=== PATIENT | male | born 1990 | race Caucasian/White ===

== ENCOUNTER → 2018-07-04 | Outpatient (CLI) | payer BC | LOC: FLAB 11:26 → FIMAGING 11:26 → EDSTATUS 11:26 | PROVIDERS: ATTEND Family Medicine | DX: M41.86 Other forms of scoliosis, lumbar region (principal); K59.00 Constipation, unspecified; R35.0 Frequency of micturition; R35.1 Nocturia ==

== ENCOUNTER 2018-07-19 10:56 | Emergency (ER) | payer BC ==
[2018-07-19] MEDS ORDERED: RANITIDINE 50 MG/2 ML VIAL IVP ONE (11:17)
[2018-07-19] MEDS ORDERED: predniSONE 20 MG TAB PO ONE (11:17)
[2018-07-19] MEDS ORDERED: NS 1,000 ML IV ONE (11:17)
[2018-07-19 12:03] LABS: PLATELET COUNT 231 10^3/uL (150-400)
[2018-07-19 12:16] LABS: CREATINE KINASE 85 IU/L (0-224)
[2018-07-19 12:22] VITALS: BP 112/76
--- NOTE | 2018-07-19 12:55 | EDPHY ---
H & P Stated Complaint: trouble breathing, STATES THROAT FEELS TIGHT" started simvistatian today - Personal History Current Tetanus Diphtheria and Acellular Pertussis (TDAP): Yes - Medical/Surgical History Hx Asthma: No Hx Chronic Respiratory Disease: No Hx Diabetes: No Hx Cardiac Disease: No Hx Renal Disease: No Hx Cirrhosis: No Hx Alcoholism: No Hx HIV/AIDS: No Hx Splenectomy or Spleen Trauma: No Other PMH: GERD, migraines, POTS - Social History Smoking Status: Current every day smoker Time Seen by Provider: 07/19/18 11:02 HPI/ROS: Chief complaint: Trouble breathing History of present illness: This is a 28-year-old male who presents to the emergency department for trouble breathing. Patient states this morning he took a dose of simvastatin. Shortly thereafter he started developed some discomfort in his throat, it felt like it was swelling. He felt like he could not breathe. He denies any actual swelling of the face, or mouth that he could see. No wheezing. No rash. He tried to take simvastatin for the 1st time 10 days ago and had the same reaction. He waited 10 days and then tried for the 2nd time today, again with the same reaction. No other complaints at this time. Review of systems: A 10 point review of systems was obtained and other than described above was negative (Bill Kennedy) - Physical Exam Exam: General Appearance: Alert and no distress. Eyes: Pupils equal and round no injection. ENT: No angioedema. There is no hoarseness, no trismus, no drooling, no stridor. No injection of the oropharynx. Respiratory: Chest is non tender, lungs are clear to auscultation. Cardiac: regular rate and rhythm Gastrointestinal: Abdomen is soft and non tender, no masses, bowel sounds normal. Musculoskeletal: Neck is supple and non tender. Extremities have full range of motion and are non tender. Skin: No rashes or lesions. (Bill Kennedy) Constitutional: Initial Vital Signs Heart Rate 67 07/19/18 11:08 Respiratory Rate 16 07/19/18 11:08 Blood Pressure 146/100 H 07/19/18 11:08 O2 Sat (%) 95 07/19/18 11:08 O2 Delivery Mode Room Air Allergies/Adverse Reactions: No Known Allergies Allergy (Unverified 07/19/18 11:03) Home Medications: Medication Instructions Recorded Diclofenac Sodium 07/19/18 Hydroxyzine HCl 07/19/18 IMITREX 07/19/18 Memantine HCl 07/19/18 Montelukast Sodium 07/19/18 Pantoprazole Sodium 07/19/18 Propranolol HCl 07/19/18 Ranitidine HCl 07/19/18 SIMVASTATIN 07/19/18 ZYRTEC 07/19/18 Zofran 07/19/18 predniSONE 40 mg PO DAILY 2 Days tablet 07/19/18 Medical Decision Making ED Course/Re-evaluation: Patient seen under the supervision of my secondary supervising physician Dr. Ivone Frias. Patient presents to the emergency department with what appears to be an adverse reaction to simvastatin. He is hemodynamically stable on my initial evaluation and throughout his course in the emergency department. He is started on prednisone. He is asked to continue prednisone at home as well as Benadryl. He is to follow up with his primary care doctor to discuss the use of simvastatin. He is not to use it again until he talks to his doctor, likely he cannot use it again ever. Strict return precautions are given. (Bill Kennedy) The patient was evaluated and managed by the physician it administrative assistant. I have reviewed this chart and I agree with the findings and plan of care as documented , as indicated by my signature. I am the secondary supervising physician. ( Ivone Frias) Differential Diagnosis: Included but not limited to anaphylaxis, allergic reaction, medication side effect (Bill Kennedy) - Data Points Laboratory Results: Laboratory Results 07/19/18 11:50 07/19/18 11:50 Medications Given: Discontinued Medications Diphenhydramine HCl (Benadryl Injection) 25 mg IVP EDNOW ONE Stop: 07/19/18 11:18 Last Admin: 07/19/18 11:39 Dose: 25 mg Sodium Chloride (Ns) 1,000 mls @ 0 mls/hr IV ONCE ONE; Wide Open PRN Reason: Protocol Stop: 07/19/18 11:18 Last Admin: 07/19/18 11:42 Dose: 1,000 mls Prednisone (Prednisone) 40 mg PO EDNOW ONE Stop: 07/19/18 11:18 Last Admin: 07/19/18 11:38 Dose: 40 mg Ranitidine HCl (Zantac) 50 mg IVP EDNOW ONE Stop: 07/19/18 11:18 Last Admin: 07/19/18 11:39 Dose: 50 mg Departure - Departure Disposition: Home, Routine, Self-Care Clinical Impression: Allergic reaction Qualifiers: Encounter type: initial encounter Qualified Code(s): T78.40XA - Allergy, unspecified, initial encounter Condition: Good Instructions: General Allergic Reaction (ED) Additional Instructions: Follow-up with her primary care doctor next week for recheck Take medications as prescribed Take Benadryl through today, you can switch to Claritin or Zyrtec tomorrow If symptoms worsen or new symptoms develop return to the emergency room for recheck Referrals: Anna Armenta MD [Primary Care Provider] - As per Instructions Prescriptions: predniSONE 40 mg PO DAILY 2 Days tablet
== END 2018-07-19 12:55 | disposition home or self-care (01) ==
DX: T78.40XA Allergy, unspecified, initial encounter (principal); E86.9 Volume depletion, unspecified
CPT/HCPCS: 96374; J1200; J2780; J7512

== ENCOUNTER → 2018-08-01 | Outpatient (CLI) | payer BC ==
[~2018-08-01] MED LIST: GADOBUTROL 10 ML VIAL IVP ONE
== END ==
LOC: FIMAGING 15:47
PROVIDERS: ATTEND Physician Assistant Medical
DX: J34.1 Cyst and mucocele of nose and nasal sinus (principal); R35.1 Nocturia; R39.15 Urgency of urination; R35.0 Frequency of micturition; R32 Unspecified urinary incontinence
CPT/HCPCS: A9585

== ENCOUNTER 2018-09-19 17:30 | Emergency (ER) | payer BC | END 2018-09-19 21:22 | disposition home or self-care (01) ==